=== PATIENT | male | born 1985 | race Caucasian/White ===

== ENCOUNTER 2021-04-17 14:24 | Outpatient (REF) | payer OTHER, SELFPAY ==
--- NOTE | ~2021-04-17 | US_ITS ---
EXAMINATION: US SCROTUM CLINICAL INFORMATION: Left testicular pain. COMPARISON: None TECHNIQUE: A sonogram of the scrotum was performed assessing faria-scale appearance and color Doppler flow. Spectral Doppler analysis of the arterial and venous flow were performed in the testes bilaterally. FINDINGS: RIGHT: Right testicle measures 4.9 x 2.5 x 3.0 cm, volume 19.2 mL. No focal testicular parenchymal lesions are visualized. Spectral Doppler analysis of the arterial and venous flow is normal in the right testis. Right epididymal head is normal in size. No right hydrocele or varicocele is seen. Right epididymal Doppler flow is increased. LEFT: Left testicle measures 4.9 x 2.5 x 3.1 cm, volume 19.9 mL. No focal testicular parenchymal lesions are visualized. Spectral Doppler analysis of the arterial and venous flow is normal in the left testis. Left epididymal head is normal in size. No left varicocele is seen. There is a small left hydrocele. Left epididymal Doppler flow is normal. US/US scrotum IMPRESSION: Small left hydrocele otherwise unremarkable exam.
== END 2021-04-17 14:25 | disposition home or self-care (01) ==
LOC: HO.HMGCX 14:24
PROVIDERS: PCP Internal Medicine; Visit Provider Physician Assistant
DX: N50.812 Left testicular pain (principal)
CPT/HCPCS: 76870

== ENCOUNTER 2021-12-28 13:56 | Outpatient (REF) | payer OTHER, SELFPAY ==
--- NOTE | ~2021-12-28 | US_ITS ---
EXAMINATION: US SCROTUM CLINICAL INFORMATION: Pain. COMPARISON: Previous exam April 2021. TECHNIQUE: A sonogram of the scrotum was performed assessing faria-scale appearance and color Doppler flow. Spectral Doppler analysis of the arterial and venous flow were performed in the testes bilaterally. FINDINGS: RIGHT: Right testicle measures 4.9 x 2.2 x 3.4 cm, volume 19 mL. No focal testicular parenchymal lesions are visualized. Spectral Doppler analysis of the arterial and venous flow is normal in the right testis. Right epididymal head is normal in size. No right hydrocele or varicocele is seen. Right epididymal Doppler flow is normal. LEFT: Left testicle measures 4.9 x 2.4 x 4 cm, volume 25 mL. No focal testicular parenchymal lesions are visualized. Spectral Doppler analysis of the arterial and venous flow is normal in the left testis. Left epididymal head is normal in size. No left hydrocele or varicocele is seen. Left epididymal Doppler flow is normal. US/US scrotum IMPRESSION: Unremarkable exam.
== END 2021-12-28 13:57 | disposition home or self-care (01) ==
LOC: HO.HMGCX 13:56
PROVIDERS: PCP Internal Medicine; Visit Provider Physician Assistant
DX: N50.812 Left testicular pain (principal)
CPT/HCPCS: 76870

== ENCOUNTER 2022-02-11 12:41 | Outpatient (REF) | payer OTHER, SELFPAY ==
[2022-02-11 13:10] LABS: MANUAL DIFF FLAG NO
[2022-02-11 13:41] LABS: Basophils Absolute Auto 0.1 X10*3/uL (0.0-0.2); Basophils Percent Auto 0.9 % (0-2); Eosinophils Absolute Auto 0.2 X10*3/uL (0.0-0.4); Eosinophils Percent Auto 3.5 % (0-4); Hematocrit 44.3 % (42.0-52.0); Hemoglobin 14.9 g/dl (14.0-18.0); Lymphocytes Percent Auto 35.5 % (20-40); Mean Corpuscular HGB Conc 33.6 g/dl (31.0-36.0); Mean Corpuscular Hemoglobin 29.2 pg (27.0-33.0); Mean Corpuscular Volume 86.7 fL (80.0-98.0); Mean Platelet Volume 9.2 fL (9.4-12.4); Monocytes Absolute Auto 0.6 X10*3/uL (0.1-1.2); Monocytes Percent Auto 11.3 % (2-11); Neutrophils Absolute Auto 2.8 x10*3/uL (2.0-8.3); Neutrophils Percent Auto 48.8 % (45-73); Platelet Count 281 X10*3/uL (160-400); Red Blood Count 5.11 X10*6/uL (4.60-5.80); White Blood Count 5.6 X10*3/uL (4.8-10.8)
[2022-02-11 14:19] LABS: Alanine Aminotransferase 66 U/L (0-40); Albumin Level 4.4 g/dL (3.5-5.0); Alkaline Phosphatase 42 U/L (39-117); Anion Gap 12 (12-20); Aspartate Amino Transferase 43 U/L (5-37); Bilirubin Total 0.7 mg/dL (0.0-1.0); Blood Urea Nitrogen 12 mg/dL (9-16); Calcium 9.7 mg/dL (8.4-10.2); Carbon Dioxide 26 mmol/L (22-29); Chloride 103 mmol/L (96-108); Cholesterol 233 mg/dL; Estimated Glomerular Filt Rate > 60; Glucose Random 101 mg/dL (60-115); HDL Cholesterol 33 mg/dL; LDL Cholesterol Calculated 140 mg/dl; Potassium 4.4 mmol/L (3.3-5.1); Sodium 137 mmol/L (135-145); Triglycerides 300 mg/dL
[2022-02-11 14:41] LABS: Vitamin D 25-OH Total 14.2 ng/mL (>30)
== END 2022-02-11 12:42 | disposition home or self-care (01) ==
LOC: HO.LAB 12:41
PROVIDERS: PCP Internal Medicine; Visit Provider Physician Assistant
DX: Z00.00 Encounter for general adult medical examination without abnormal findings (principal)
CPT/HCPCS: 36415; 80053; 80061; 82306; 85025

== ENCOUNTER 2022-02-18 12:29 | Outpatient (REF) | payer OTHER, SELFPAY ==
[2022-02-18 14:17] LABS: Alanine Aminotransferase 63 U/L (0-40); Albumin Level 4.5 g/dL (3.5-5.0); Alkaline Phosphatase 39 U/L (39-117); Anion Gap 12 (12-20); Aspartate Amino Transferase 38 U/L (5-37); Bilirubin Direct 0.3 mg/dL (0.0-0.5); Bilirubin Total 0.8 mg/dL (0.0-1.0); Blood Urea Nitrogen 12 mg/dL (9-16); Calcium 9.7 mg/dL (8.4-10.2); Carbon Dioxide 27 mmol/L (22-29); Chloride 103 mmol/L (96-108); Estimated Glomerular Filt Rate > 60; Glucose Random 84 mg/dL (60-115); Potassium 4.2 mmol/L (3.3-5.1); Sodium 138 mmol/L (135-145); Total Protein 7.8 g/dL (6.5-8.0)
== END 2022-02-18 12:30 | disposition home or self-care (01) ==
LOC: HO.LAB 12:29
PROVIDERS: PCP Internal Medicine; Visit Provider Physician Assistant
DX: R94.5 Abnormal results of liver function studies (principal)
CPT/HCPCS: 36415; 80053; 82248

== ENCOUNTER → 2022-03-05 08:42 | Outpatient (BNVA) | payer OTHER, SELFPAY | PROVIDERS: PCP Internal Medicine; Visit Provider Urology | DX: Z13.89 Encounter for screening for other disorder (principal) ==

== ENCOUNTER 2023-07-27 11:54 | Outpatient (REF) | payer OTHER, SELFPAY ==
[2023-07-27 12:43] LABS: MANUAL DIFF FLAG NO
[2023-07-27 12:48] LABS: Basophils Percent Auto 0.4 % (0-2); Eosinophils Absolute Auto 0.2 X10*3/uL (0.0-0.4); Eosinophils Percent Auto 2.3 % (0-4); Hemoglobin 15.5 g/dl (14.0-18.0); Imm Gran Abs Auto 0.04 X10*3/uL (0.00-0.03); Imm Gran Pct Auto 0.4 % (0.0-0.4); Lymphocytes Absolute Auto 2.4 X10*3/uL (1.2-4.9); Lymphocytes Percent Auto 26.8 % (20-40); Mean Corpuscular HGB Conc 33.7 g/dl (31.0-36.0); Mean Corpuscular Hemoglobin 29.7 pg (27.0-33.0); Mean Corpuscular Volume 88.1 fL (80.0-98.0); Monocytes Absolute Auto 0.8 X10*3/uL (0.1-1.2); Monocytes Percent Auto 8.7 % (2-11); Neutrophils Absolute Auto 5.5 x10*3/uL (2.0-8.3); Neutrophils Percent Auto 61.4 % (45-73); Platelet Count 340 X10*3/uL (160-400); Red Blood Count 5.22 X10*6/uL (4.60-5.80); Red Cell Distribution Width 11.6 % (11.0-16.0)
[2023-07-27 12:49] LABS: Appearance Urine Clear; Color Urine Yellow; Glucose Urine UA Negative (Negative); Leukocyte Esterase Urine Negative (Negative); Nitrite Urine Negative (Negative); PH 6.5 (5.0-9.0); Urine Blood Negative (Negative); Urine Ketones Negative (Negative); Urine Protein Negative (Neg-Trace)
[2023-07-27 12:52] LABS: Bacteria Urine None Seen (None Seen); Hyaline Casts Urine 0-2 /LPF (0-2); RBC Urine 0-2 /HPF (0-2); Squamous Epithelial Cell Urine 0-2 /HPF (0-2); WBC Urine 0-5 /HPF (0-5)
[2023-07-27 12:56] LABS: Estimated Average Glucose 108 mg/dL; Hemoglobin A1c % 5.4 % (<6.0)
[2023-07-27 13:26] LABS: Erythrocyte Sedimentation Rate 13 MM/HR (0-15)
[2023-07-27 13:40] LABS: Alanine Aminotransferase 30 U/L (0-40); Albumin Level 4.5 g/dL (3.5-5.0); Alkaline Phosphatase 42 U/L (39-117); Anion Gap 12 (12-20); Aspartate Amino Transferase 19 U/L (5-37); Bilirubin Total 0.5 mg/dL (0.0-1.0); Blood Urea Nitrogen 10 mg/dL (9-16); C Reactive Protein 0.63 mg/dL (< or = 0.50); Calcium 9.9 mg/dL (8.4-10.2); Carbon Dioxide 30 mmol/L (22-29); Chloride 101 mmol/L (96-108); Estimated Glomerular Filt Rate > 60; Glucose Random 79 mg/dL (60-115); Potassium 3.9 mmol/L (3.3-5.1); Sodium 139 mmol/L (135-145); Total Protein 8.1 g/dL (6.5-8.0)
[2023-07-27 14:00] LABS: Prostate Specific Antigen 1.08 ng/mL (<0.05-4.0)
== END 2023-07-27 11:55 | disposition home or self-care (01) ==
LOC: HO.MANLDS 11:54
PROVIDERS: PCP Internal Medicine; Visit Provider Physician Assistant
DX: Z12.5 Encounter for screening for malignant neoplasm of prostate (principal); R35.0 Frequency of micturition; E79.0 Hyperuricemia without signs of inflammatory arthritis and tophaceous disease
CPT/HCPCS: 36415; 80053; 81001; 82550; 83036; 83605; 84153; 85025; 85652; 86140

== ENCOUNTER 2023-09-16 14:00 | Outpatient (AMB) | payer OTHER, SELFPAY ==
--- NOTE | 2023-09-16 14:45 | A.OFFVIS_ITS ---
Intake Intake Visit Reasons: Vastomy consult Intake Note: Patient is present for Vasectomy Consultation No Children Not expecting Allergies No Known Allergies [No Known Allergies*] Allergy (Verified 03/05/22 08:59) HPI HPI Comments History of Present Illness Details Krystian is a very pleasant male. He is a patient of Dr Chavez. He is seen for the following urologic condition - anxiety about health - Vasectomy evaluation Vasectomy evaluation The patient presents for vasectomy consultation. He is currently He has fathered - 0 child, with a single partner. The youngest child is. His partner is aware and permissive for a vasectomy Current form of control is IUD. The vasectomy may be complicated due to a history of no complicating issues, inguinal hernia repair, orchidopexy, history of orchitis, orchiectomy. Patient education has been provided via [facility] video, via printed information, risks of failure, recovery time, bruising and potential pain syndrome have been stressed Discussion today focused on the presence of vasectomy and the risks, benefits and alternatives that are available. Vasectomy as intended as a permanent form of control. Printed information and literature was provided to the patient. Overall there is a one in 2500 failure rate. This can occur at any time after vasectomy. Risks were discussed highlighting hematoma, spermatocele, epididymal congestion, development of sperm antibodies, and development of ch ronic pain estimated between 1-5%. The procedure was reviewed in detail. Anatomical diagrams of the male genitalia were used to explain the location of the vas deferens. The vas deferens will be transected, the proximal end will be cauterized, a metal clip would be applied to separate the 2 vas deferens ends. It was explained the procedure will be done in the office and takes approximately 10-15 minutes. Less common problems that arise with vasectomy include hematoma, bleeding, allergic reaction to anesthetic, epididymal infection, epididymal congestion, scrotal discomfort, spermatic leak, spermatic granuloma and the possibility of antisperm antibodies. He understands these risks and wishes to proceed. Consent was signed at the office today. He also understands that it takes 12 weeks for sperm to fully clear the system. He will need to provide a semen sample at 12 weeks and if this is not clear a 2nd sample at 16 weeks. Medical clearance to stop using protection will only be provided if he satisfies published criteria for sperm clearance. Review of Systems Const Denies chills and Denies fever(s) Card Reports no additional complaints and Denies syncope Resp Denies cough GI Denies abdominal pain and Denies heartburn Reports as per HPI and Denies change in libido Neuro Denies syncope Psych Denies change in libido Endo Denies change in libido Physical Exam Const General: cooperative, healthy appearing, comfortable and no acute distress Orientation/consciousness: patient oriented x3 HEENT Face and sinus: Yes normal facial exam Mouth: moist mucous membranes Neck Neck: Yes normal visual inspection, Yes full ROM and Yes trachea midline Chest Chest palpation & inspection: normal inspection of the chest Resp Effort & Inspection: normal respiratory effort, able to speak in complete sentences and no respiratory distress GI Inspection: Yes normal to inspection Back/Spine/Pelvis Cervical Spine: normal cervical lordosis Thoracic/Lumbar Spine: thoracic and lumbar spine normal to inspection Skin General skin exam: no rashes or lesions noted Neuro General: patient oriented x3, gait normal, tone normal and moves all extremities Extrem General: Yes normal to inspection and Yes capillary refill normal Assessment & Plan Assessment & Plan (1) Anxiety about health: Code(s): R45.89 - Other symptoms and signs involving emotional state Plan Schedule vasectomy Medications: New acetaminophen-codeine 300-30 mg Taken each night after vasectomy to help sleep if needed 1 tab PO Q8H 3 days 9 tabs 0RF R45.89 - Other symptoms and signs involving emotional state diazepam Take medication after arrival at office 2 mg PO BID 1 day PRN 2 tabs 0RF anxiety R45.89 - Other symptoms and signs involving emotional state Patient Instructions: Imaging studies, laboratory and physical exam results were discussed and reviewed in detail. No major barriers to patient understanding were identified. An opportunity to ask questions regarding the treatment plan was provided. All questions were answered. The patient expressed understanding and agreement with the above treatment plan. The patient is aware they should contact our office by phone for worsening of their current condition or the appearance of new urologic symptoms. Compliance is encouraged with any medications and followup testing that is ordered. It is a privilege to participate in the urologic care of your patient. If you have any questions or concerns regarding treatment for the above conditions, or other urologic issues, please do not hesitate to contact me. The office telephone contact is [phone]. This note is constructed using voice recognition software. While every effort has been made to ensure accuracy scrub technician errors may have been included. Yours sincerely, Dr Jose De Jesus Quiros MD, [facility] - Urology Providers of Expert, Compassionate Care for the Genitourinary System Coding Level of Care Code New Pt Level 4 (41778) Diagnoses Anxiety about health R45.89
== END 2023-09-16 15:04 | disposition home or self-care (01) ==
PROVIDERS: PCP Internal Medicine; Visit Provider Urology
DX: R45.89 Other symptoms and signs involving emotional state (principal)
CPT/HCPCS: 99214

== ENCOUNTER → 2023-09-16 14:00 | Outpatient (BNVA) | payer OTHER, SELFPAY | PROVIDERS: PCP Internal Medicine; Visit Provider Urology ==

== ENCOUNTER 2023-12-02 14:56 | Outpatient (AMB) | payer OTHER, SELFPAY ==
--- NOTE | 2023-12-02 15:27 | A.OFFVIS_ITS ---
Intake Intake Visit Reasons: vasectomy (Confirmed) Intake Note: Patient presents today for a Vasectomy Allergies to Antibiotic- No Known Allergies Blood Thinner- None Log Sorting Supervisor Required: No Accompanied by: Self / Same As Patient Allergies No Known Allergies [No Known Allergies*] Allergy (Verified 12/02/23 15:29) HPI HPI Comments History of Present Illness Details Krystian is a very pleasant male. He is a patient of Dr Chavez. He is seen for the following urologic condition - anxiety about health - Vasectomy evaluation Vasectomy procedure The patient presents for vasectomy procedure. He is currently He has fathered - 0 child, with a single partner. The youngest child is. His partner is aware and permissive for a vasectomy Current form of control is IUD. Office Procedures Vasectomy Details: Preoperative diagnosis: Anxiety regarding Postoperative diagnosis: Anxiety regarding unplanned Procedure: Bilateral vasectomy Informed consent had been completed. Preoperative and postoperative instructions were provided to the patient. The patient has transportation to home identified at the completion of the procedure. Anti-anxiolytic prescription medication had been taken after consent verification and all questions answered. Tylenol with Codeine pain medication was also provided. The penis was elevated using a rubber band that was attached to the patient's shirt. Both vasa were palpated through the skin using a 3 finger technique and the penoscrotal junction was prepped with Betadine. After Betadine application the left vas was elevated using a 3 finger grasping technique. 1% lidocaine was used to create a subdermal bubble. Approximately 2 minutes were allowed to for local anesthetic uptake. Further anesthetic was then advanced using the 25-gauge needle along the vasa in a proximal fashion. Using the sharp spreading instrument the scrotum was spread longitudinally in line with the vasa. The vasa was elevated from the scrotum using a ring clamp. Care was taken to elevate the superior portion of the vas. Using the sharp spreading instrument the vasal sheath was removed from the covering of this segment of the vas. A fresh knife blade was used to partially divide the vasal sheath and to strip the vasal sheath from the vasa. The vasa w as grasped with an Addson forcep and elevated from the incision. The ring clamp was placed so it grasped the elevated vas. The vasal sheath was dissected from the vaas in a proximal and distal fashion. This allowed the blood vessels of the vasa to retract from the vasa. Using the battery-powered cautery a partial division was made in the proximal vas. The battery-powered cautery was used to cauterize the proximal end of the vas. This was then cut and allowed to retract into the vasal sheath. A suture was placed on the vasal sheath to create a fascial interposition. The distal portion of the vas was then cut in order to obtain a segment of vasa. The vasa were allowed to retract back into the scrotum. A small snap was then used to approximate the skin edges. A similar procedure was repeated on the right side. He tolerated the procedure well. Triple antibiotic was applied. A gauze was applied. An ice pack was applied to assist with minimizing swelling. Postoperative instructions were confirmed. He understands the need to continue to use control methods. A semen sample should be brought for inspection under the microscope in 10-12 weeks. CPT 44380 Vasectomy performed by: Jose De Jesus Quiros Informed consent given: Yes Informed consent signed: Yes Time out checklist: patient, procedure, site marked/identified, positioning of patient, supplies available, allergies confirmed and team agrees on procedure Preoperative sedation: Yes Anesthetic used: other Specimens: vas segments not sent to pathology 53168 - Vasectomy Assessment & Plan Assessment & Plan (1) Anxiety about health: Code(s): R45.89 - Other symptoms and signs involving emotional state Plan Three-month follow-up Patient Instructions: Imaging studies, laboratory and physical exam results were discussed and reviewed in detail. No major barriers to patient understanding were identified. An opportunity to ask questions regarding the treatment plan was provided. All questions were answered. The patient expressed understanding and agreement with the above treatment plan. The patient is aware they should contact our office by phone for worsening of their current condition or the appearance of new urologic symptoms. Compliance is encouraged with any medications and followup testing that is ordered. It is a privilege to participate in the urologic care of your patient. If you have any questions or concerns regarding treatment for the above conditions, or other urologic issues, please do not hesitate to contact me. The office telephone contact is [phone]. This note is constructed using voice recognition software. While every effort has been made to ensure accuracy fabrication and layout craftsman errors may have been included. Yours sincerely, Dr Jose De Jesus Quiros MD, [facility] - Urology Providers of Expert, Compassionate Care for the Genitourinary System Coding Level of Care Code Procedure Only Diagnoses Anxiety about health R45.89 CPT Codes Office Procedure - CPT: 68375 - Vasectomy ([id number])
== END 2023-12-02 16:21 | disposition home or self-care (01) ==
PROVIDERS: PCP Internal Medicine; Visit Provider Urology
DX: Z30.2 Encounter for sterilization (principal); R45.89 Other symptoms and signs involving emotional state
CPT/HCPCS: 55250

== ENCOUNTER → 2023-12-02 14:56 | Outpatient (BNVA) | payer OTHER, SELFPAY | PROVIDERS: PCP Internal Medicine; Visit Provider Urology | DX: Z30.2 Encounter for sterilization (principal); F41.8 Other specified anxiety disorders | CPT/HCPCS: 55250 ==

== ENCOUNTER 2024-02-13 10:18 | Outpatient (REF) | payer OTHER, SELFPAY ==
[2024-02-13 13:17] LABS: MANUAL DIFF FLAG NO
[2024-02-13 13:58] LABS: Basophils Absolute Auto 0.1 X10*3/uL (0.0-0.2); Eosinophils Absolute Auto 0.2 X10*3/uL (0.0-0.4); Eosinophils Percent Auto 3.6 % (0-4); Hematocrit 45.9 % (42.0-52.0); Hemoglobin 15.9 g/dl (14.0-18.0); Imm Gran Abs Auto 0.01 X10*3/uL (0.00-0.03); Imm Gran Pct Auto 0.2 % (0.0-0.4); Lymphocytes Absolute Auto 1.9 X10*3/uL (1.2-4.9); Mean Corpuscular HGB Conc 34.6 g/dl (31.0-36.0); Mean Corpuscular Hemoglobin 30.3 pg (27.0-33.0); Mean Corpuscular Volume 87.4 fL (80.0-98.0); Mean Platelet Volume 9.3 fL (9.4-12.4); Monocytes Absolute Auto 0.5 X10*3/uL (0.1-1.2); Neutrophils Absolute Auto 2.4 x10*3/uL (2.0-8.3); Neutrophils Percent Auto 48.2 % (45-73); Platelet Count 294 X10*3/uL (160-400); Red Blood Count 5.25 X10*6/uL (4.60-5.80); Red Cell Distribution Width 11.9 % (11.0-16.0)
[2024-02-13 14:02] LABS: Estimated Average Glucose 105 mg/dL; Hemoglobin A1c % 5.3 % (<6.0)
[2024-02-13 14:19] LABS: Alanine Aminotransferase 38 U/L (0-40); Albumin Level 4.6 g/dL (3.5-5.0); Alkaline Phosphatase 40 U/L (39-117); Anion Gap 15 (12-20); Aspartate Amino Transferase 29 U/L (5-37); Bilirubin Total 0.6 mg/dL (0.0-1.0); Blood Urea Nitrogen 10 mg/dL (9-16); Calcium 9.8 mg/dL (8.4-10.2); Carbon Dioxide 24 mmol/L (22-29); Chloride 103 mmol/L (96-108); Cholesterol 225 mg/dL (<200); Estimated Glomerular Filt Rate > 60; Glucose Random 92 mg/dL (60-115); HDL Cholesterol 36 mg/dL (>40); LDL Cholesterol Calculated 154 mg/dL (<100); Potassium 4.1 mmol/L (3.3-5.1); Sodium 138 mmol/L (135-145); Total Protein 8.1 g/dL (6.5-8.0); Triglycerides 175 mg/dL (<150)
== END 2024-02-13 10:19 | disposition home or self-care (01) ==
LOC: HO.MANLDS 10:18
PROVIDERS: Visit Provider Physician Assistant
DX: Z00.00 Encounter for general adult medical examination without abnormal findings (principal)
CPT/HCPCS: 36415; 80053; 80061; 83036; 85025

== ENCOUNTER 2024-03-06 14:28 | Outpatient (AMB) | payer OTHER, SELFPAY ==
--- NOTE | 2024-03-06 14:43 | A.OFFVIS_ITS ---
Intake Visit Reasons: 3m semen analysis Allergies No Known Allergies [No Known Allergies*] Allergy (Verified 12/02/23 15:29) HPI Comments Details: Krystian is a very pleasant male. He is a patient of Dr Chavez. He is seen for the following urologic condition - anxiety about health - Vasectomy No sperm seen per high-powered field Tolerated procedure well Vasectomy Followup The patient presents for vasectomy followup. He is currently He has fathered - 0 child, with a single partner. The youngest child is. His partner is aware and permissive for a vasectomy Current form of control is IUD Review of Systems Const Denies chills and Denies fever(s) Card Reports no additional complaints and Denies syncope Resp Denies cough GI Denies abdominal pain and Denies heartburn Reports as per HPI and Denies change in libido Neuro Denies syncope Psych Denies change in libido Endo Denies change in libido Physical Exam Const General: cooperative, healthy appearing, comfortable and no acute distress Orientation/consciousness: patient oriented x3 HEENT Face and sinus: Yes normal facial exam Mouth: moist mucous membranes Neck Neck: Yes normal visual inspection, Yes full ROM and Yes trachea midline Chest Chest palpation & inspection: normal inspection of the chest Resp Effort & Inspection: normal respiratory effort, able to speak in complete sentences and no respiratory distress GI Inspection: Yes normal to inspection Back/Spine/Pelvis Cervical Spine: normal cervical lordosis Thoracic/Lumbar Spine: thoracic and lumbar spine normal to inspection Skin General skin exam: no rashes or lesions noted Neuro General: patient oriented x3, gait normal, tone normal and moves all extremities Extrem General: Yes normal to inspection and Yes capillary refill normal Assessment & Plan Assessment & Plan (1) Anxiety about health: Code(s): R45.89 - Other symptoms and signs involving emotional state Category: Medical Plan P.r.n. follow-up Patient Instructions: Imaging studies, laboratory and physical exam results were discussed and reviewed in detail. No major barriers to patient understanding were identified. An opportunity to ask questions regarding the treatment plan was provided. All questions were answered. The patient expressed understanding and agreement with the above treatment plan. The patient is aware they should contact our office by phone for worsening of their current condition or the appearance of new urologic symptoms. Compliance is encouraged with any medications and followup testing that is ordered. It is a privilege to participate in the urologic care of your patient. If you have any questions or concerns regarding treatment for the above conditions, or other urologic issues, please do not hesitate to contact me. The office telephone contact is [phone]. This note is constructed using voice recognition software. While every effort has been made to ensure accuracy veneer patcher errors may have been included. Yours sincerely, Dr Jose De Jesus Quiros MD, [facility] - Urology Providers of Expert, Compassionate Care for the Genitourinary System Coding Level of Care Code Est Pt Level 3 (36630) Diagnoses Anxiety about health R45.89
== END 2024-03-06 15:08 | disposition home or self-care (01) ==
PROVIDERS: PCP Internal Medicine; Visit Provider Urology
DX: R45.89 Other symptoms and signs involving emotional state (principal)
CPT/HCPCS: 99213

== ENCOUNTER → 2024-03-06 14:28 | Outpatient (BNVA) | payer OTHER, SELFPAY | PROVIDERS: PCP Internal Medicine; Visit Provider Urology ==

== ENCOUNTER 2025-01-10 14:18 | Outpatient (REF) | payer OTHER, SELFPAY ==
[2025-01-10 16:35] LABS: Uric Acid 7.9 mg/dL (3.4-7.0)
--- OUTSIDE RECORDS SUMMARY | 2025-01-10 17:04 | XMS_ITS | Data Portability ---
Author Organization [facility], Home Service Address [address] [place] [address] Assessment Encounter Date Assessment Date Assessment LastModified by Organization Details LastModified Time 01/22/2022 01/22/2022 The patient denies little pleasure in activities they find enjoyable, feeling depressed, difficulties sleeping, feeling tired or having little energy, change in appetite, feeling guilty, overwhelmed or unmotivated. The patient denies suicidal ideation, thoughts of hurting themselves or others. Their mood is appropriate, they show good judgement and clear understanding of the conversation. They are orientated to time, place and person. They are not expressing any concerning thoughts or actions that would need further investigation and treatment for mental health. [email or web address] Not available 01/22/2022 09:13:41 Plan of Treatment Reminders Order Date Submit Date Provider Last Modified By Organization Details Last Modified Time Details Appointments ANNUAL EXAM 2024 09:30A M TAD FERRELL Not available Not available Not available Lab CMP, serum or plasma 2023 024 [facility], [address] [place] [address], [id number], 02/14/2024 11:36:31 lipid panel, blood 2023 024 [facility], [address] [place] [address], [id number], 02/14/2024 11:36:31 CBC w/ auto diff 2023 024 [facility], [address] [place] [address], [id number], 02/14/2024 11:36:31 hemoglobi n A1c, QN, blood 2023 024 [facility], [address] [place] [address], [id number], 02/14/2024 11:36:31 urinalysi s complete, reflex culture 2022 023 [facility], [address] [place] [address], [id number], 07/28/2023 13:05:03 PSA, total, serum or plasma 2022 023 [facility], [address] [place] [address], [id number], 07/28/2023 13:05:03 hemoglobi n A1c, QN, blood 2022 023 [facility], [address] [place] [address], [id number], 07/27/2023 11:48:29 CMP, serum or plasma 2022 023 [facility], [address] [place] [address], [id number], 07/28/2023 13:05:03 CK (creatine kinase), total, serum 2022 023 [facility], [address] [place] [address], 11747, 07/27/2023 11:48:28 lactic acid, blood 2022 023 [facility], [address] [place] [address], [id number], 07/27/2023 11:48:27 CBC w/ auto diff 2022 023 [facility], [address] [place] [address], [id number], 07/28/2023 13:05:03 ESR (erythroc yte sedimenta tion rate), blood 2022 023 [facility], [address] [place] [address], [id number], 07/27/2023 11:48:28 C reactive protein, QN, serum or plasma 2022 023 [facility], [address] [place] [address], [id number], 07/27/2023 11:48:28 CMP, serum or plasma 2022 023 [facility], [address] [place] [address], [id number], 02/01/2023 12:35:18 lipid panel, blood 2022 023 [facility], [address] [place] [address], [id number], 02/01/2023 12:35:18 CBC w/ auto diff 2022 023 [facility], [address] [place] [address], [id number], 02/01/2023 12:35:17 vitamin D, 25-hydrox y, total, serum 2022 023 [facility], [address] [place] [address], 16467, 02/01/2023 12:35:18 hemoglobi n A1c, QN, blood 2022 023 [facility], [address] [place] [address], [id number], 02/01/2023 12:35:18 magnesium , serum or plasma 2022 023 [facility], [address] [place] [address], [place], [address], 02/01/2023 12:35:18 CMP, serum or plasma 2021 [facility], [address] [place] [address], 540[address], 01/29/2022 08:48:44 CBC w/ auto diff 2021 [facility], [address] [place] [address], 97453, 02/12/2022 13:03:04 lipid panel, blood 2021 [facility], [address] [place] [address], 18177, 02/12/2022 13:03:04 vitamin D, 25-hydrox y, total, serum 2021 [facility], [address] [place] [address], 82394, 02/12/2022 13:03:04 Referral dermatolo gist referral 2021 [facility], [address] [place] [address], [id number], 02/19/2022 08:24:34 Procedures None recorded. Surgeries None recorded. Imaging US, testicle 2021 [facility], [address] [place] [address], [id number], 12/29/2021 21:25:16 Medication Orders sumatript an 50 mg tablet 2023 024 [facility] [id number] [facility], [address] [place], [address], 02/13/2024 09:51:50 lorazepam 0.5 mg tablet 2023 024 [id number], [address] [place], [address], 02/13/2024 09:51:54 colchicin e 0.6 mg tablet 2022 023 [email or web address], [address] [place], [address], 02/13/2024 09:40:46 nabumeton e 500 mg tablet 2022 023 [email or web address] [facility], [address] [place], [address], 02/13/2024 09:41:19 sumatript an 50 mg tablet 2022 023 [facility] [id number] [facility], [address] [place], [address], 02/01/2023 12:16:08 lorazepam 0.5 mg tablet 2022 023 [facility] [id number] [facility], [address] [place], [address], 02/01/2023 12:16:08 Patient TargetsNo targets recorded. 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 [email or web address] Not Available 2021 11:20:24 Result Notes None recorded. Problems Name Problem SNOMED Code Status Onset Date Resolution Date Notes Provider Name and Address Organization Details Recorded Time Pain of left testicle 263763434486 58915 Active 2021 Not Available [facility] 3 15:38:33 Seborrhei c dermatiti s of scalp 859348401 Active 2021 Not Available [facility] 3 15:38:33 Liver function tests outside reference range 924146998 Active 2021 Not Available [facility] 3 15:38:33 Liver enzymes level above reference range 013077683 Active 2021 Not Available [facility] 3 15:38:33 Achilles tendiniti s 06091174 Active 2022 Not Available [facility] 3 15:38:33 COVID-19 616144251 Active 2022 Not Available [facility] 3 15:38:33 Gout 50699806 Active 2022 Not Available [facility] 3 15:38:34 Hyperuric emia 16940250 Active 2022 TAD FERRELL [address] [place], [address], [facility] 3 11:40:50 Increased frequency of urination 499199590 Active 2022 TAD FERRELL [address] [place], [address], [facility] 3 11:41:10 Metabolic acidosis 28192491 Active 2022 TAD FERRELL [address] [place] [address], [address], [facility] 3 11:46:04 Acute bronchiti s 47605968 Active 2023 TAD FERRELL [address] [place], [address], [facility] 4 10:15:49 Anxiety 20101488 Active 2017 Not Available [facility] 3 15:38:33 Closed fracture of left wrist 360258799603 85008 Active 2017 Not Available [facility] 3 15:38:33 Closed fracture of right wrist 085214911502 37023 Active 2017 Not Available [facility] 3 15:38:33 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 Procedures Surgical History Date Name Laterality Status Provider Name and Address Organization Details Recorded Time 01/16/20 24 vasectomy completed TAD FERRELL [address] [place] [address], [place], [address], [facility] 02/13/2024 10:08:34 01/02/20 19 Colonoscopy completed Fabiana Carrasquillo [facility] 01/02/2019 08:02:48 Imaging Results Imaging Date Name Status LastModified by Organiz ation Details LastModified Time 12/28/2021 US, testicle completed [email or web address] Information not available 12/30/2021 11:20:24 Procedure Notes None recorded. Medical Equipment None Reported. Allergies No known drug allergies Medications Name Sig Start Date Stop Date Status Note LastModified by Organization Details LastModified Time cyclobenzap rine 10 mg tablet Take 1 tablet 3 times a day by oral route as needed for 30 days. 12/18 completed Not Available Not Available Not Available prednisone 10 mg tablet 50 mg x 2 days40 mg x 2 days30 mg x 2 days20 mg x 2 days10 mg x 2 days active Not Available Not Available No t Available azithromyci n 250 mg tablet TAKE 2 TABLETS BY MOUTH TODAY, THEN TAKE 1 TABLET DAILY FOR 4 DAYS DIRECTED active Not Available Not Available No t Available ibuprofen 800 mg tablet TAKE 1 TABLET BY MOUTH 3 (THREE) TIMES A DAY FOR 3 DAYS. THEN 3 TIMES A DAY NEEDED active Not Available Not Available No t Available meloxicam 15 mg tablet TAKE 1 TABLET BY MOUTH EVERY DAY *USE FOR 3-5 DAYS WHEN EPIDIDYMI TIS FLARES* 02/12 completed Not Available Not Available Not Available sucralfate 1 gram tablet 04/10 completed Not Available Not Available Not Available famotidine 40 mg tablet TAKE 1 TABLET BY MOUTH TWICE A DAY FOR 30 DAYS 07/27 completed Not Available Not Available Not Available prednisone 20 mg tablet TAKE 1 TABLET BY MOUTH EVERY DAY FOR 14 DAYS 07/27 completed Not Available Not Available Not Available sumatriptan 50 mg tablet TAKE 1 TABLET FOR MIGRAINE REPEAT DOSE AFTER 1 HOUR active Not Available Not Available No t Available acetaminoph en 300 mg-codeine 30 mg tablet TAKE 1 TABLET BY MOUTH EVERY 8 HOURS EACH NIGHT AFTER VASECTOMY TO HELP SLEEP IF NEEDED FOR 3 DAYS 02/12 completed Not Available Not Available Not Available prochlorper azine maleate 10 mg tablet 04/21 completed Not Available Not Available Not Available allopurinol 100 mg tablet TAKE 1 TABLET BY MOUTH EVERY DAY active Not Available Not Available No t Available sulfamethox azole 800 mg-trimetho prim 160 mg tablet TAKE 1 TABLET BY MOUTH EVERY 12 HOURS FOR 10 DAYS 04/10 completed Not Available Not Available Not Available tramadol 50 mg tablet TAKE 1 TABLET BY MOUTH EVERY 6 HOURS NEEDED FOR 7 DAYS 02/12 completed Not Available Not Available Not Available ondansetron 8 mg disintegrat ing tablet Place 1 tablet twice a day by transling ual route as needed for 14 days. 01/22 completed PRN Not Available Not Available Not Available oxycodone-a cetaminophe n 5 mg-325 mg tablet 11/06 completed Not Available Not Available Not Available lorazepam 0.5 mg tablet TAKE 1 TABLET BY MOUTH THREE TIMES DAILY NEEDED active Not Available Not Available No t Available diazepam 2 mg tablet TAKE 1 TABLET BY MOUTH 2 TIMES A DAY NEEDED FOR ANXIETY AFTER ARRIVAL AT OFFICE 02/12 completed Not Available Not Available Not Available calcipotrie ne 0.005 % topical cream 04/21 completed Not Available Not Available Not Available indomethaci n 50 mg capsule TAKE 1 CAPSULE BY MOUTH 3 TIMES A DAY WITH MEALS. 07/27 completed Not Available Not Available Not Available omeprazole 20 mg capsule,del ayed release Take 1 capsule every day by oral route. active Not Available Not Available No t Available hydroxyzine HCl 25 mg tablet TAKE 1 TABLET BY MOUTH THREE TIMES DAILY NEEDED active Not Available Not Available No t Available ibuprofen 600 mg tablet prn active Not Available Not Available Not Available methylpredn isolone 4 mg tablets in a dose pack TAKE 6 TABLETS ON DAY 1 DIRECTED ON PACKAGE AND DECREASE BY 1 TAB EACH DAY FOR A TOTAL OF 6 DAYS active Not Available Not Available No t Available colchicine 0.6 mg tablet TAKE 1 TABLET BY MOUTH 3 TIMES A DAY FOR 10 DAYS active Not Available Not Available No t Available doxycycline hyclate 20 mg tablet 04/10 completed Not Available Not Available Not Available clobetasol 0.05 % scalp solution APPLY TO SCALP 3X/WEEK NEEDED. 07/27 completed Not Available Not Available Not Available nabumetone 500 mg tablet TAKE 1 TABLET BY MOUTH TWICE A DAY NEEDED FOR 14 DAYS 02/12 completed Not Available Not Available Not Available Laxative (bisacodyl) 5 mg tablet,joanna yed release TAKE 4 TABLETS BY MOUTH DIRECTED FOR 1 DAY active Not Available Not Available No t Available DentaGel 1.1 % 04/10 completed Not Available Not Available Not Available bupropion HCl XL 150 mg 24 hr tablet, extended release TAKE 1 TABLET BY MOUTH EVERY DAY 09/09 completed Not Available Not Available Not Available Wellbutrin XL 300 mg 24 hr tablet, extended release Take 1 tablet every day by oral route. 09/09 completed Not Available Not Available Not Available chlorhexidi ne gluconate 0.12 % mouthwash 12/18 completed Not Available Not Available Not Available Prilosec OTC qd 02/12 completed Not Available Not Available Not Available GaviLyte-G 236 gram-22.74 gram-6.74 gram-5.86 gram oral solution DRINK DIRECTED FOR 1 DAY FOR COLON PREP active Not Available Not Available No t Available Fluzone Quad 60 mcg (15 mcg x 4)/0.5 mL intramuscul ar susp. 04/10 completed Not Available Not Available Not Available Fluzone Quad (PF) 60 mcg (15 mcg x 4)/0.5 mL IM syringe [facility]ARMACY [facility] 04/10 completed Not Available Not Available Not Available Vitals Date Recorded Body height Body mass index (BMI) Body weight Oxygen saturation Oxygen saturation in Arterial blood by Pulse oximetry Heart rate Systolic blood pressure Diastolic blood pressure Provider Name and Address Organization Details Last Updated DateTime 2 184.79 cm 31.7 kg/m2 939378. 58 g 97 % 97 % 82 /min 118 mm[Hg] 78 mm[Hg] [facility] 2 14:51:38 Date Recorded Body height Body mass index (BMI) Body weight Oxygen saturation Oxygen saturation in Arterial blood by Pulse oximetry Heart rate Systolic blood pressure Diastolic blood pressure Provider Name and Address Organization Details Last Updated DateTime 2 184.79 cm 31.2 kg/m2 006738. 57 g 99 % 99 % 83 /min 122 mm[Hg] 70 mm[Hg] Jade Khan [facility] 2 09:06:54 Date Recorded Body height Body mass index (BMI) Body weight Heart rate Oxygen saturation Oxygen saturation in Arterial blood by Pulse oximetry Systolic blood pressure Diastolic blood pressure Provider Name and Address Organization Details Last Updated DateTime 3 184.79 cm 30.6 kg/m2 386081. 4 g 72 /min 98 % 98 % 118 mm[Hg] 70 mm[Hg] TAD FERRELL [address] [place], [address], [facility] 3 12:00:08 Date Recorded Body height Body mass index (BMI) Body weight Heart rate Oxygen saturation Oxygen saturation in Arterial blood by Pulse oximetry Systolic blood pressure Diastolic blood pressure Provider Name and Address Organization Details Last Updated DateTime 3 184.79 cm 28.8 kg/m2 09616.1 9 g 74 /min 97 % 97 % 130 mm[Hg] 84 mm[Hg] TAD FERRELL [address] [place], [address], [facility] 3 11:22:52 Date Recorded Body height Body mass index (BMI) Body weight Heart rate Oxygen saturation Oxygen saturation in Arterial blood by Pulse oximetry Systolic blood pressure Diastolic blood pressure Provider Name and Address Organization Details Last Updated DateTime 4 184.79 cm 30.5 kg/m2 752296. 17 g 80 /min 98 % 98 % 118 mm[Hg] 78 mm[Hg] Luz Elena Ribera [facility] 4 09:45:18 Social History Question Answer Notes LastModified by Organizat ion Details LastModified Time Tobacco Smoking Status Former Smoker Not Available [facility] 08/05/2020 03:36:24 What Was The Date Of Your Most Recent Tobacco Screening? 02/13/2024 [email or web address] Information not available 02/13/2024 How Many Years Have You Smoked Tobacco? 5 [id number] Information not available 08/05/2020 Sex: Unknown Functional Status None recorded. Mental Status None recorded. Family History Relationship Description Onset Age of this Age Resolved Age Notes LastModified by Organization Details LastModified Time Father No current problems or disability [email or web address] Not available 02/12 10:08:14 Mother No current problems or disability [email or web address] Not available 02/12 10:08:14 Medical History Condition Response Coronary Artery Disease N Gout N Other N Kidney Stones N Blood Diseases N Blood Transfusion N COPD N Depression N Anxiety Disorder N Muscle, Joint, or Bone Problems N Obesity N Vision or Eye Problems N Arthritis N Polyps N Infertility N Mental Disorder N Cancer N Varicosities N Stroke N Headaches N Fibromyalgia N Kidney Disease N Heart Problems N Hospitalizations N Eating Disorder N Skin Problems N MRSA exposure N Constipation N Tuberculosis N Asthma N Hepatitis N Pulmonary Embolism N Chicken Pox N Autism Spectrum Disorder (ASD) N Breast Cancer N Lung Disease N Defects or Inherited Disease N Endometriosis N Bladder or Kidney Problems N High Cholesterol N Liver Disease N Allergies/Hayfever N Thyroid Problems N GI Problems N Anemia N Mental Illness N Diabetes N Ovarian Cancer N Seizures/Epilepsy N Congestive Heart Failure (CHF) N Eczema N Abuse/Domestic Violence N Diverticulitis N Reflux/GERD N Heart Disease N Hypertension N Osteoporosis N Immunizations Vaccine Type Date Status Note Provider Nam e and Address Organization Details Recorded Time COVID-19, mRNA, LNP-S, PF, 100 mcg/0.5mL dose or 50 mcg/0.25mL dose 1 completed Not Available [facility] 07/04/2023 11:30:48 Influenza, split virus, quadrivalent, preservative 9 completed Not Available [facility] 07/04/2023 11:30:48 Influenza, split virus, quadrivalent, preservative 0 completed Not Available [facility] 07/04/2023 11:30:48 Influenza, split virus, quadrivalent, preservative 1 completed Not Available [facility] 07/04/2023 11:30:48 influenza, unspecified formulation 4 completed [facility] 06/27/2024 13:40:59 Tdap 4 completed Not Available [facility] 07/04/2023 11:30:48 COVID-19, mRNA, LNP-S, PF, 100 mcg/0.5mL dose or 50 mcg/0.25mL dose 1 completed Not Available [facility] 07/04/2023 11:30:48 COVID-19, mRNA, LNP-S, PF, 100 mcg/0.5mL dose or 50 mcg/0.25mL dose 1 completed Not Available [facility] 07/04/2023 11:30:48 Past Encounters Encounter ID Performer Location Encounter Start Date Encounter Closed Date Diagnosis/Indication Diagnosis SNOMED-CT Code Diagnosis ICD10 Code Diagnosis Note [id number],[place] [address] 04/21/2018 11:13:31 04/21/2018 11:38:30 Adult health examination 084365620 Z00.01 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 [id number],[place] [address] 11/06/2019 15:31:52 11/06/2019 16:38:25 Adult health examination 465146102 Z00.01 Tolliver syndrome 875533061 Z15.09 he sees GI for annual colonoscop y and UEGD every 2-3 years. Anxiety 37618330 F41.9 anxiety had been on something in the past that gave him side effects has been sertraline and paxil with side effects has also been on xanax, ativan, clonazepam at different times Insomnia 744983344 G47.0 0 [id number] [facility] [address],[place] [address] 01/08/2020 13:33:29 01/08/2020 15:43:55 Tolliver syndrome 103240670 Z15.09 he sees GI for annual colonoscop y and UEGD every 2-3 years. Anxiety 32764877 F41.9 no problems with wellbutrin would like to increase dose consider taking for approx 9 months and then if he would like at that time to try to taper off then we can see how he responds to the taper Insomnia 583397774 G47.0 0 [id number] TAD FERRELL [facility] [address] [facility] [place] [facility] [place] [address] 09/09/2020 08:36:01 09/09/2020 15:11:22 Anxiety 48075364 F41.9 refill Gastroesop hageal reflux disease 295386601 K21.9 increased symptoms, hx of tolliver syndrome fu with GI Tolliver syndrome 328967247 Z15.09 will set up with gi for eval [id number] Johnny Chavez DO [facility] [address] [facility],[place] [address] 03/20/2021 12:14:07 03/20/2021 14:35:33 Acute epididymitis 03081378 N45.1 we will treat for a full 10 days [id number] TAD FERRELL [facility] [address] [facility] [facility] [place] [facility] [place] [address] 04/10/2021 10:58:56 04/10/2021 16:13:35 Pain of left testicle 1157124177 1465188 N50.812 will set up with US Sensation of blocked ear 775348694 H93.299 will use flonase Lipoma of back 997328906 D17.1 and of the lateral thigh of the right legtold him to call if they bother him and we can set him up with derm to have the resected [id number] TAD FERRELL [facility] [address] [facility] [facility] [place] [address] 10/21/2021 08:10:00 10/26/2021 10:22:42 Tension-type headache 818076135 G44.219 will start on treatment for msk and anxiety related tension headaches Anxiety 87429512 F41.1 refill [id number] TAD FERRELL [facility] [address] [facility] [address] 10/26/2021 08:21:06 10/27/2021 16:25:07 Cyst of skin 489758744 L72.8 ?cyst vs folliculit raina fu in two weeks Headache 05006229 R51.0 improved [id number] TAD FERRELL [facility] [address] [facility] [address], [place] [address] 12/18/2021 14:43:44 12/18/2021 15:19:45 Pain of left testicle 3116915829 6733711 N50.812 will set up with US of the testicle Epididymitis 15458587 N4 5.1 ?possible[place] [id number] TAD FERRELL [facility] [address] [facility], [facility] [place] [address] 01/22/2022 09:01:19 01/22/2022 09:33:23 Active or passive immunization 326564159 Z23 advised Adult heal th examination 681703181 Z00.00 BP is excellent todayvital s are excellent today Family julianne nning education 599564588 Z30.02 will fu with urology for sperm analysis Seborrheic dermatitis of scalp 669324442 L21.0 will set up with dermatolog y [id number] TAD FERRELL [facility] [address] [facility], [place] [address] 02/01/2023 11:40:44 02/01/2023 13:53:02 Active or passive immunization 003241733 Z23 advised Adult heal th examination 196676487 Z00.00 BP is excellent todayvital s are excellent today Anxiety 24823354 F41.1 refill Tension-type headache 39 8392740 G44.219 will start on treatment for msk and anxiety related tension headaches Achilles tendinitis 1165 4001 M76.62 will set up with achilles work sheet for patient [id number] TAD FERRELL [facility] [address] [facility], [facility] [place] [address] 07/27/2023 11:11:17 07/27/2023 13:50:13 Gout 35681845 M10.072 fu with more blood workrestar t colchicine different dosage instructio ns and start nabumetone for the pain Hyperuricemia 49447944 E 79.0 fu with full blood work panel Increased frequency of urination 402206225 R35.0 fu will urinalysis as well [id number] TAD FERRE[facility] [address] [facility],[place] [facility] [place] [address] 02/13/2024 09:32:24 02/13/2024 10:18:17 Active or passive immunization 134782662 Z23 advised Adult heal th examination 989045700 Z00.00 BP is excellent todayvital s are excellent today Depression screening 171 163764 Z13.31 stable Tension-type headache 39 4942464 G44.219 will start on treatment for msk and anxiety related tension headaches Anxiety [id number] F41.1 refill needed Health Concerns Section Related Observation LastModified by Organization Detai ls LastModified Time None Recorded Concern Status LastModified by Organization Details LastModified Time None Recorded Advance Directives Directive None Recorded Payers Encounter Date Sequence Insurance Name Policy Number Policy Hdz Covered Member ID Hdz Member ID Guarantor Name 12/18/2021 1 [facility] [id number] 1 Josiah Sutton [id number] Josiah Sutton 01/22/2022 1 [facility] [id number] 1 Josiah Sutton [id number] Josiah Sutton 02/01/2023 1 [facility] [id number] 1 Josiah Sutton [id number] Josiah Sutton 07/27/2023 1 [facility] [id number] 1 Josiah Sutton [id number] Josiah Sutton 02/13/2024 1 [facility] [id number] 1 Josiah Sutton [id number] Josiah Sutton Notes Date Note Type Note Provider Name a nd Address Organization Details Recorded Time 2 text/html c/o left groin pain the patient reports left groin painthe patient reports that it is intermittent painbetter with laying flat and the patient reports that when he masturbates, the patient reports that he presses around the perineum areathe patient is concerned about damage to the area will fu with US to r/o hernia, varicocele, hydrocele cyst is clearedHR is fineheadaches are better TAD [address] [place], [address], [facility] 12/18/2021 15:08:39 2 text/html Annual WellnessReported bypatient.Diet and Nutrition:healthy diet;diet is high in salt;diet is high in fat, low in fiber;high caloric intake;high carbohydrate meals;low calcium intake; discussed vitamin and supplement use; discussed portion control; discussed maintaining calcium balance; discussed diet improvement; working on diet and exercise for the summer Fracture Risk:no history of fractures; no recent explained fracture; no sudden unexplained fractures; no previous musculoskeletal injuries Physical Activity:discussed weightbearing activities; discussed exercise habits; will be using his membership through his school to go to the gym Additional Lifestyle Factors:no tobacco use; drinks alcohol (mild-moderate) Depression Risk:never feels sad, empty, or tearful; no loss of interest in activities; no significant changes in weight; no sleep disturbances or insomnia; no agitation; no loss of energy; no feelings of worthlessness or guilt; no thoughts of suicide; no history of depression; no history of mood disorders Hearing:no loss of hearing Vision:no vision problems [address] [place], [address], [facility] 01/22/2022 09:32:07 3 text/html Annual WellnessReported bypatient.Diet and Nutrition:healthy diet; discussed vitamin and supplement use; discussed portion control; discussed maintaining calcium balance; discussed diet improvement Fracture Risk:no history of fractures; no recent explained fracture; no sudden unexplained fractures; no previous musculoskeletal injuries Physical Activity:exercises on a regular basis; recent increase in physical activity; good physical condition; discussed weightbearing activities; discussed exercise habits Additional Lifestyle Factors:no tobacco use; drinks alcohol (mild-moderate) Depression Risk:never feels sad, empty, or tearful; no loss of interest in activities; no significant changes in weight; no sleep disturbances or insomnia; no agitation; no loss of energy; no feelings of worthlessness or guilt; no thoughts of suicide; no history of depression; no history of mood disorders Hearing:no loss of hearing Vision:no vision problems anxiety: stable; no flare ups skin checkbenign findingscherry red spots talked about bunion (left side)the patient given brace the patient needs blood work colonoscopy and endoscopy stable; no concerns or findingsthe patient has been using famotidineonly uses prilosec for significant flare up [address] [place], [address], [facility] 02/01/2023 12:41:55 3 text/html f/u recurrent gout no improvementmeds stop it then it comes backwill try to decrease the inflammation the switch to allopurinol quickly to drop his uric acid level, 7.9 at will fu with more testing as well for if his liver, kidney or heart are triggering this to occur already changed dietlow purine dietstopped energy drinks [address] [place], [address], [facility] 07/27/2023 11:51:28 4 text/html Annual WellnessReported bypatient.Diet and Nutrition:healthy diet; discussed vitamin and supplement use; discussed portion control; discussed maintaining calcium balance; discussed diet improvement Fracture Risk:no history of fractures; no recent explained fracture; no sudden unexplained fractures; no previous musculoskeletal injuries Physical Activity:exercises on a regular basis; recent increase in physical activity; good physical condition Additional Lifestyle Factors:no tobacco use; no alcohol intake; stopped drinking alcohol Depression Risk:never feels sad, empty, or tearful; no loss of interest in activities; no significant changes in weight; no sleep disturbances or insomnia; no agitation; no loss of energy; no feelings of worthlessness or guilt; no thoughts of suicide; no history of depression; no history of mood disorders Hearing:no loss of hearing Vision:no vision problems the patient doing wellhas not had a gout flare uphas avoided his trigger with the energy drink migraines are well controlled BP is excellent hereconcerns about it being elevateddiscussed taking it at home to see what he trends at home the patient and I talked about flonase for the inner ear has another lipoma on the right upper anterior thigh has prasad red spots, no changes in any other moles the patient had his vasectomyhas some scar tissue formation around the incision, no pain and has urology f/u has yearly colonoscopy [address] [facility], [place], [address], [facility] 02/13/2024 10:15:27
== END 2025-01-10 14:19 | disposition home or self-care (01) ==
LOC: HO.LAB 14:18
PROVIDERS: PCP Internal Medicine; Visit Provider Physician Assistant
DX: M10.072 Idiopathic gout, left ankle and foot (principal)
CPT/HCPCS: 36415; 84550

== ENCOUNTER 2025-03-05 09:52 | Outpatient (REF) | payer OTHER, SELFPAY ==
--- OUTSIDE RECORDS SUMMARY | 2025-03-05 11:05 | XMS_ITS | Data Portability ---
Author Organization [facility] Home Service Address [address] [place] [address] Assessment Encounter Date Assessment Date Assessment LastModified [...] mental health. 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 Not available 03/05/2025 09:41:22 Plan of Treatment Reminders Order Date Submit Date Provider Last Modified By Organization Details Last Modified Time Details Appointments ANNUAL EXAM 2024 09:30A M TAD FERRELL Not available Not available Not available ANNUAL EXAM 2025 09:00A M TAD FERRELL Not available Not available Not available Lab PSA, total + free, serum or plasma 2024 025 [facility], [address] [place] [address], [id number], 03/05/2025 09:43:17 testoster one, free + total, serum 2024 025 [facility], [address] [place] [address], [id number], 03/05/2025 09:43:17 CMP, serum or plasma 2024 025 [facility], [address] [place] [address], [id number], 03/05/2025 09:43:17 lipid panel, blood 2024 025 [facility], [address] [place] [address], [id number], 03/05/2025 09:43:17 CBC w/ auto diff 2024 025 [facility], [address] [place] [address], [id number], 03/05/2025 09:43:17 hemoglobi n A1c, QN, blood 2024 025 [facility], [address] [place] [address], [id number], 03/05/2025 09:43:17 uric acid, serum or plasma 2024 025 [facility], [address] [place] [address], [id number], 03/05/2025 09:43:17 CMP, serum or plasma 2023 024 [facility], [address] [place] [address], [id number], 02/14/2024 11:36:31 lipid panel, blood 2023 024 [facility], [address] [place] [address], [id number], 02/14/2024 11:36:31 CBC w/ auto diff 2023 024 [facility], [address] [place] [address], [id number], 02/14/2024 11:36:31 hemoglobi n A1c, QN, blood 2023 024 [facility], [address] [place] [address], [id number], 02/14/2024 11:36:31 urinalysi s complete, reflex culture 2022 023 [facility], [address] [place] [address], [id number], 07/28/2023 13:05:03 PSA, total, serum or plasma 2022 023 [facility], [address] [place] [address], [id number], 07/28/2023 13:05:03 hemoglobi n A1c, QN, blood 2022 023 [facility], [address] [place] [address], [id number], 07/27/2023 11:48:29 CMP, serum or plasma 2022 023 [facility], [address] [place] [address], 55207, 07/28/2023 13:05:03 CK (creatine kinase), total, serum 2022 023 [facility], [address] [place] [address], 72789, 07/27/2023 11:48:28 lactic acid, blood 2022 023 [facility], [address] [place] [address], 87176, 07/27/2023 11:48:27 CBC w/ auto diff 2022 023 [facility], [address] [place] [address], [id number], 07/28/2023 13:05:03 ESR (erythroc yte sedimenta tion rate), blood 2022 023 [facility], [address] [place] [address], 04086, 07/27/2023 11:48:28 C reactive protein, QN, serum or plasma 2022 023 [facility], [address] [place] [address], 55598, 07/27/2023 11:48:28 CMP, serum or plasma 2022 023 [facility], [address] [place] [address], 89072, 02/01/2023 12:35:18 lipid panel, blood 2022 023 [facility], [address] [place] [address], 46230, 02/01/2023 12:35:18 CBC w/ auto diff 2022 023 [facility], [address] [place] [address], [id number], 02/01/2023 12:35:17 vitamin D, 25-hydrox y, total, serum 2022 023 [facility], [address] [place] [address], [id number], 02/01/2023 12:35:18 hemoglobi n A1c, QN, blood 2022 023 [facility], [address] [place] [address], 64082, 02/01/2023 12:35:18 magnesium , serum or plasma 05/2022 [facility], [address] [place] [address], 89144, 02/01/2023 12:35:18 CMP, serum or plasma 2021 [facility], [address] [place] [address], 71308, 01/29/2022 08:48:44 CBC w/ auto diff 2021 [facility], [address] [place] [address], 23573, 02/12/2022 13:03:04 lipid panel, blood 2021 [facility], [address] [place] [address], 13283, 02/12/2022 13:03:04 vitamin D, 25-hydrox y, total, serum 2021 [facility], [address] [place] [address], 69898, 02/12/2022 13:03:04 Referral dermatolo gist referral 2021 [facility], [address] [place], [address], 02/19/2022 08:24:34 Procedures None recorded. Surgeries None recorded. Imaging None recorded. Medication Orders sumatript an 50 mg tablet 2023 [id number], [address] [place], [address], 02/13/2024 09:51:50 lorazepam 0.5 mg tablet 2023 024 [id number], [address] [place], [address], 02/13/2024 09:51:54 colchicin e 0.6 mg tablet 2022 023 [email or web address], [address] [place], [address], 03/05/2025 09:24:11 nabumeton e 500 mg tablet 2022 023 [email or web address] [facility], [address] [place], [address], 02/13/2024 09:41:19 sumatript an 50 mg tablet 2022 023 [id number], [address] [place], [address], 02/01/2023 12:16:08 lorazepam 0.5 mg tablet 2022 023 [id number], [address] [place], [address], 02/01/2023 12:16:08 Patient TargetsNo targets recorded. Patient Instructions Encounter Date Encounter Id Patient Instructions Last Modified By Organization Details Last Modified Time 02/01/2023 [id number] achilles tendon: exercises rtryba Not available 02/01/2023 12:17:24 calf/achilles stretching/streng thening exercises [email or web address] Not available 02/01/2023 12:17:24 Reason for Referral [employer] Referral for S eborrheic dermatitis of scalp [...] Details Recorded Time Pain of left testicle 432299278818 43192 Active 2021 Not Available [facility] 15:38:33 Seborrhei c dermatiti s of scalp 526920085 Active 2021 Not Available [facility] 15:38:33 Liver function tests outside reference range 277961039 Active 2021 Not Available [facility] 3 15:38:33 Liver enzymes level above reference range 268802179 Active 2021 Not Available [facility] 3 15:38:33 Achilles tendiniti s 71081843 Active 2022 Not Available [facility] 3 15:38:33 COVID-19 649637310 Active 2022 Not Available [facility] 3 15:38:33 Gout 25405469 Active 2022 Not Available [facility] 3 15:38:34 Hyperuric emia 45892193 Active 2022 TAD FERRELL [address] [place], [address], [facility] 3 11:40:50 Increased frequency of urination 903202138 Active 2022 TAD FERRELL [address] [place], [address], [facility] 3 11:41:10 Metabolic acidosis 17848931 Active 2022 TAD FERRELL [address] [place], [address], [facility] 3 11:46:04 Anxiety 44158478 Active 2017 Not Available [facility] 3 15:38:33 Closed fracture of left wrist 157027776730 31456 Active 2017 Not Available [facility] 3 15:38:33 Closed fracture of right wrist 566663863669 48022 Active 2017 Not Available [facility] 3 15:38:33 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 Procedures Surgical History Date Name Laterality Status Provider Name and Address Organization Details Recorded Time 01/16/20 24 vasectomy completed TAD FERRELL [address] [facility], [place], [address], [facility] 02/13/2024 10:08:34 01/02/20 19 Colonoscopy completed Fabiana Carrasquillo [facility] 01/02/2019 08:02:48 Imaging Results None recorded. Procedure Notes None recorded. Medical Equipment None Reported. Allergies No known drug allergies Medications Name Sig Start Date Stop Date Status Note LastModified by Organization Details LastModified Time cyclobenzap rine 10 mg tablet Take 1 tablet 3 times a day by oral route as needed for 30 days. 12/18 completed Not Available Not Available Not Available prednisone 10 mg tablet 03/05 completed Not Available Not Available Not Available azithromyci n 250 mg tablet TAKE 2 TABLETS BY MOUTH TODAY, THEN TAKE 1 TABLET DAILY FOR 4 DAYS DIRECTED 03/05 completed Not Available Not Available Not Available ibuprofen 800 mg tablet TAKE 1 [...] TAKE 1 TABLET BY MOUTH EVERY DAY 03/05 completed Not Available Not Available Not Available sulfamethox azole 800 mg-trimetho prim 160 [...] t Available ibuprofen 600 mg tablet prn 03/05 completed Not Available Not Available Not Available methylpredn isolone 4 mg tablets in a dose pack TAKE 6 TABLETS ON DAY 1 DIRECTED ON PACKAGE AND DECREASE BY 1 TAB EACH DAY FOR A TOTAL OF 6 DAYS 03/05 completed Not Available Not Available Not Available colchicine 0.6 mg tablet TAKE 1 TABLET BY MOUTH 3 TIMES A DAY FOR 10 DAYS 03/05 completed Not Available Not Available Not Available doxycycline hyclate 20 mg tablet 04/10 [...] TABLETS BY MOUTH DIRECTED FOR 1 DAY 03/05 completed Not Available Not Available Not Available DentaGel 1.1 % 04/10 completed Not [...] DIRECTED FOR 1 DAY FOR COLON PREP 03/05 completed Not Available Not Available Not Available Fluzone Quad 60 mcg (15 mcg x 4)/0.5 mL intramuscul ar susp. 04/10 completed Not Available Not Available Not Available Fluzone Quad (PF) 60 mcg (15 mcg x 4)/0.5 mL IM syringe [facility]ARMACY [facility] 04/10 completed Not Available Not Available Not Available allopurinol 200 mg tablet TAKE 1 TABLET BY MOUTH EVERY DAY DIRECTED active Not Available Not Available No t Available Vitals Date Recorded Body height Body mass index (BMI) Body weight Oxygen saturation Oxygen saturation in Arterial blood by Pulse oximetry Heart rate Systolic blood pressure Diastolic blood pressure Provider Name and Address Organization Details Last Updated DateTime 2 184.79 cm 31.2 kg/m2 736681. 57 g 99 % 99 % 83 /min 122 mm[Hg] 70 mm[Hg] [facility] 2 09:06:54 Date Recorded Body height Body mass index (BMI) Body weight Heart rate Oxygen saturation Oxygen saturation in Arterial blood by Pulse oximetry Systolic blood pressure Diastolic blood pressure Provider Name and Address Organization Details Last Updated DateTime 3 184.79 cm 30.6 kg/m2 181810. 4 g 72 /min 98 % 98 % 118 mm[Hg] 70 mm[Hg] TAD FERRELL [address] [place], [address], [facility] 3 12:00:08 Date Recorded Body height Body mass index (BMI) Body weight Heart rate Oxygen saturation Oxygen saturation in Arterial blood by Pulse oximetry Systolic blood pressure Diastolic blood pressure Provider Name and Address Organization Details Last Updated DateTime 4 184.79 cm 30.5 kg/m2 537481. 17 g 80 /min 98 % 98 % 118 mm[Hg] 78 mm[Hg] Luz Elena Ribera [facility] 4 09:45:18 Date Recorded Body height Body mass index (BMI) Body weight Heart rate Oxygen saturation Oxygen saturation in Arterial blood by Pulse oximetry Systolic blood pressure Diastolic blood pressure Provider Name and Address Organization Details Last Updated DateTime 5 184.79 cm 30.3 kg/m2 303889. 06 g 64 /min 98 % 98 % 118 mm[Hg] 74 mm[Hg] Luz Elena Ribera [facility] 5 09:28:41 Date Recorded Body height Body mass index (BMI) Body weight Heart rate Oxygen saturation Oxygen saturation in Arterial blood by Pulse oximetry Systolic blood pressure Diastolic blood pressure Provider Name and Address Organization Details Last Updated DateTime 3 184.79 cm 28.8 kg/m2 46853.1 9 g 74 /min 97 % 97 % 130 mm[Hg] 84 mm[Hg] TAD FERRELL [address] [place], [address] 3 11:22:52 Social History Question Answer Notes LastModified by Organizat ion Details LastModified Time Tobacco Smoking Status Former Smoker Not Available [facility] 08/05/2020 03:36:24 What Was The Date Of Your Most Recent Tobacco Screening? 03/05/2025 [email or web address] Information not available 03/05/2025 How Many Years Have You Smoked Tobacco? 5 [id number] Information not available 08/05/2020 Sex: Unknown Functional [...] N Blood Diseases N Blood Transfusion N Breast Cancer N COPD N Depression N Lung Disease N Defects or Inherited Disease N Anxiety Disorder N Muscle, Joint, or Bone Problems N Obesity N Vision or Eye Problems N Arthritis N Polyps N Infertility N Mental Disorder N Cancer N Varicosities N Stroke N Endometriosis N Bladder or Kidney Problems N High Cholesterol N Liver Disease N Headaches N Fibromyalgia N Kidney Disease N Allergies/Hayfever N Heart Problems N Hospitalizations N Thyroid Problems N GI Problems N Eating Disorder N Skin Problems N Anemia N MRSA exposure N Constipation N Mental Illness N Diabetes N Ovarian Cancer N Seizures/Epilepsy N Tuberculosis N Congestive Heart Failure (CHF) N Eczema N Abuse/Domestic Violence N Diverticulitis N Asthma N Reflux/GERD N Hepatitis N Heart Disease N Pulmonary Embolism N Hypertension N Chicken Pox N Autism Spectrum Disorder (ASD) N Osteoporosis N Immunizations Vaccine Type Date Status Note Provider Nam e and Address Organization Details Recorded Time COVID-19, mRNA, LNP-S, PF, 100 mcg/0.5mL dose or 50 mcg/0.25mL dose 1 completed Not Available [facility] 07/04/2023 11:30:48 Influenza, split virus, quadrivalent, preservative 9 completed Not Available [facility] 07/04/2023 11:30:48 Influenza, split virus, quadrivalent, preservative 0 completed Not Available [facility] 07/04/2023 11:30:48 Influenza, split virus, quadrivalent, preservative 1 completed Not Available [facility] 07/04/2023 11:30:48 influenza, unspecified formulation 4 completed Luz Elena egan [facility] 06/27/2024 13:40:59 influenza, unspecified formulation 4 completed TAD FERRELL [address] [place] [address], [address], [facility] 03/05/2025 09:38:35 Tdap 4 completed Not Available [facility] 07/04/2023 11:30:48 COVID-19, mRNA, LNP-S, PF, 100 mcg/0.5mL dose or 50 mcg/0.25mL dose 1 completed Not Available [facility] 07/04/2023 11:30:48 COVID-19, mRNA, LNP-S, PF, 100 mcg/0.5mL dose or 50 mcg/0.25mL dose 1 completed Not Available [facility] 07/04/2023 11:30:48 Past Encounters Encounter ID Performer Location Encounter Start Date Encounter Closed Date Diagnosis/Indication Diagnosis SNOMED-CT Code Diagnosis ICD10 Code Diagnosis Note [id number] Johnny Chavez [facility] [address] [facility], [place] [address] 04/21/2018 11:13:31 04/21/2018 11:38:30 Adult health examination 819912401 Z00.01 Tolliver syndrome 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 [id number] Johnny Chavez [facility] [address] [address], [place] [address] 11/06/2019 15:31:52 11/06/2019 16:38:25 Adult health examination 372119745 Z00.01 Tolliver syndrome 028769908 Z15.09 he sees GI for annual colonoscop y and UEGD every 2-3 years. Anxiety 79236402 F41.9 anxiety had been on something in the past that gave him side effects has been sertraline and paxil with side effects has also been on xanax, ativan, clonazepam at different times Insomnia 660928923 G47.0 0 [id number] Johnny Chavez [facility] [address] [facility],[place] [address] 01/08/2020 13:33:29 01/08/2020 15:43:55 Tolliver syndrome 514511395 Z15.09 he sees GI for annual colonoscop y and UEGD every 2-3 years. Anxiety 30688256 F41.9 no problems with wellbutrin would like to increase dose consider taking for approx 9 months and then if he would like at that time to try to taper off then we can see how he responds to the taper Insomnia 059534678 G47.0 0 [id number] Johnny Chavez [facility] [address], [facility] [place] [address] 09/09/2020 08:36:01 09/09/2020 15:11:22 Anxiety 18448683 F41.9 refill Gastroesop hageal reflux disease 345777280 K21.9 increased symptoms, hx of tolliver syndrome fu with GI Tolliver syndrome 240232070 Z15.09 will set up with gi for eval [id number] Johnny Chavez [facility] Internal [facility] [address],[place] [address] 03/20/2021 12:14:07 03/20/2021 14:35:33 Acute epididymitis 55278735 N45.1 we will treat for a full 10 days [id number] Johnny Chavez [facility] Internal [facility] [address], [facility] [place] [address] 04/10/2021 10:58:56 04/10/2021 16:13:35 Pain of left testicle 3542309037 1721699 N50.812 will set up with US Sensation of blocked ear 629531286 H93.299 will use flonase Lipoma of back 847461342 D17.1 and of the lateral thigh of the right legtold him to call if they bother him and we can set him up with derm to have the resected [id number] Johnny Chavez [facility] Internal [facility] [address], [place] [facility] [place] [address] 10/21/2021 08:10:00 10/26/2021 10:22:42 Tension-type headache 832665735 G44.219 will start on treatment for msk and anxiety related tension headaches Anxiety 47670064 F41.1 refill [id number] Johnny Chavez [facility] Internal [facility] [address], [place] [place] [facility] [place] [address] 10/26/2021 08:21:06 10/27/2021 16:25:07 Cyst of skin 287198633 L72.8 ?cyst vs folliculit iswill fu in two weeks Headache 66212820 R51.0 improved [id number] Johnny Chavez [facility] Medicine [address] [facility] on [place] [facility] [place] [address] 12/18/2021 14:43:44 12/18/2021 15:19:45 Pain of left testicle 7311492653 2022436 N50.812 will set up with US of the testicle Epididymitis 11636776 N4 5.1 ?possible[place] [id number] Johnny Chavez DO [facility] [address] [facility] [address] [place] [address] 01/22/2022 09:01:19 01/22/2022 09:33:23 Active or passive immunization 027777867 Z23 advised Adult heal th examination 346743929 Z00.00 BP is excellent todayvital s are excellent today Family julianne nning education 987113757 Z30.02 will fu with urology for sperm analysis Seborrheic dermatitis of scalp 751621746 L21.0 will set up with dermatolog y [id number] Johnny Chavez [facility] [address] [facility] [place] [facility] [place] [address] 02/01/2023 11:40:44 02/01/2023 13:53:02 Active or passive immunization 076964886 Z23 advised Adult heal th examination 796956594 Z00.00 BP is excellent todayvital s are excellent today Anxiety 70240313 F41.1 refill Tension-type headache 39 5141124 G44.219 will start on treatment for msk and anxiety related tension headaches Achilles tendinitis 1165 4001 M76.62 will set up with achilles work sheet for patient [id number] Johnny Chavez [facility] Medicine [address] [facility] [address] [place] [address] 07/27/2023 11:11:17 07/27/2023 13:50:13 Gout 73305815 M10.072 fu with more blood workrestar t colchicine different dosage instructio ns and start nabumetone for the pain Hyperuricemia 40242265 E 79.0 fu with full blood work panel Increased frequency of urination 284484655 R35.0 fu will urinalysis as well [id number] Johnny Chavez DO [facility] [address] [address],[place] [address] 02/13/2024 09:32:24 02/13/2024 10:18:17 Active or passive immunization 792371553 Z23 advised Adult heal th examination 409738691 Z00.00 BP is excellent todayvital s are excellent today Depression screening 171 818054 Z13.31 stable Tension-type headache 39 5104356 G44.219 will start on treatment for msk and anxiety related tension headaches Anxiety 96401706 F41.1 refill needed [id number] Johnny Chavez [facility] Medicine [address] [address],[facility] [place] [address] 03/05/2025 09:19:31 03/05/2025 09:48:36 Active or passive immunization 978765100 Z23 advised General ex amination of patient 679486373 Z00.00 BP is excellent todayvital s are excellent today due for Tdap Hyperuricemia 17662541 E 79.0 f/u with full blood work panel Screening for malignant neoplasm of prostate 939512544 Z12.5 will set up with screening, hx of Tolliver Health Concerns Section Related Observation LastModified by Organization Detai ls LastModified Time None Recorded Concern Status LastModified by Organization Details LastModified Time None Recorded Advance Directives Directive None Recorded Payers Encounter Date Sequence Insurance Name Policy Number Policy Hdz Covered Member ID Hdz Member ID Guarantor Name 01/22/[address] [facility] [id number] Josiah Sutton [id number] Josiah Sutton 02/01/[address] [facility] [id number] 1 Josiah Sutton [id number] Josiah Sutton 07/27/[address] [facility] [id number] 1 Josiah Sutton [id number] Josiah Sutton 02/13/[address] [facility] [id number] 1 Josiah Sutton [id number] Josiah Sutton 03/05/[address] [facility] [id number] 1 Josiah Sutton [id number] Josiah Sutton Notes Date Note Type Note Provider Name a dc Address Organization Details Recorded Time 04/22/202 2 text/html Annual WellnessReported bypatient.Diet and Nutrition:healthy [...] of hearing Vision:no vision problems TAD FERRELL [address] [place] [address], [address], [facility] 01/22/2022 09:32:07 3 text/html Annual [...] for significant flare up TAD FERRELL [address] [place], [address], [facility] 02/01/2023 12:41:55 3 text/html f/u [...] purine dietstopped energy drinks TAD FERRELL [address] [place], [address], [facility] 07/27/2023 11:51:28 4 text/html Annual [...] f/u has yearly colonoscopy TAD FERRELL [address] [place], [address], [facility] 02/13/2024 10:15:27 5 text/html Annual WellnessReported bypatient.Diet and Nutrition:healthy diet; [...] of hearing Vision:no vision problems TAD FERRELL [address] [place] [address], [address], [facility] 03/05/2025 09:48:35
[2025-03-05 13:28] LABS: MANUAL DIFF FLAG NO
[2025-03-05 13:31] LABS: Basophils Absolute Auto 0.1 X10*3/uL (0.0-0.2); Basophils Percent Auto 1.4 % (0-2); Eosinophils Absolute Auto 0.2 X10*3/uL (0.0-0.4); Eosinophils Percent Auto 3.5 % (0-4); Hematocrit 45.9 % (42.0-52.0); Hemoglobin 15.7 g/dl (14.0-18.0); Lymphocytes Absolute Auto 1.7 X10*3/uL (1.2-4.9); Lymphocytes Percent Auto 38.6 % (20-40); Mean Corpuscular HGB Conc 34.2 g/dl (31.0-36.0); Mean Corpuscular Hemoglobin 30.3 pg (27.0-33.0); Mean Corpuscular Volume 88.6 fL (80.0-98.0); Mean Platelet Volume 9.3 fL (9.4-12.4); Monocytes Absolute Auto 0.4 X10*3/uL (0.1-1.2); Monocytes Percent Auto 9.6 % (2-11); Neutrophils Percent Auto 46.9 % (45-73); Platelet Count 289 X10*3/uL (160-400); Red Blood Count 5.18 X10*6/uL (4.60-5.80); Red Cell Distribution Width 11.9 % (11.0-16.0); White Blood Count 4.3 X10*3/uL (4.8-10.8)
[2025-03-05 13:57] LABS: Estimated Average Glucose 105 mg/dL; Hemoglobin A1C 140.6016 umol/L; Hemoglobin A1c % 5.3 % (<6.0)
[2025-03-05 14:00] LABS: Alanine Aminotransferase 54 U/L (0-40); Albumin Level 4.7 g/dL (3.5-5.0); Alkaline Phosphatase 45 U/L (39-117); Anion Gap 12 (12-20); Aspartate Amino Transferase 37 U/L (5-37); Bilirubin Total 0.3 mg/dL (0.0-1.0); Blood Urea Nitrogen 9 mg/dL (9-16); Calcium 9.7 mg/dL (8.4-10.2); Carbon Dioxide 29 mmol/L (22-29); Chloride 105 mmol/L (96-108); Cholesterol 212 mg/dL (<200); Estimated Glomerular Filt Rate > 60; Glucose Random 89 mg/dL (60-115); HDL Cholesterol 33 mg/dL (>40); LDL Cholesterol Calculated 141 mg/dL (<100); Potassium 4.3 mmol/L (3.3-5.1); Sodium 142 mmol/L (135-145); Total Protein 7.9 g/dL (6.5-8.0); Triglycerides 193 mg/dL (<150); Uric Acid 6.1 mg/dL (3.4-7.0)
[2025-03-06 13:29] LABS: Free Prostate Spec Ag 0.4 ng/mL; Percent Free Prostate Spec Ag 36 % (calc) (>25); Prostate Specific Ag Total 1.1 ng/mL (< OR = 4.0)
[2025-03-09 12:48] LABS: Testosterone, Free 87.5 pg/mL (35.0-155.0); Testosterone, Total 537 ng/dL (250-1100)
== END 2025-03-05 09:53 | disposition home or self-care (01) ==
LOC: HO.MANLDS 09:52
PROVIDERS: Visit Provider Physician Assistant
DX: Z00.00 Encounter for general adult medical examination without abnormal findings (principal); E79.0 Hyperuricemia without signs of inflammatory arthritis and tophaceous disease; Z12.5 Encounter for screening for malignant neoplasm of prostate
CPT/HCPCS: 36415; 80053; 80061; 83036; 84154; 84402; 84403; 84550; 85025